=== PATIENT | male | born 1990 | race Caucasian/White ===

== ENCOUNTER 2020-01-26 06:49 | Day surgery (SDC) | payer BC, OTHER ==
[2020-01-19 12:07] LABS: BASOPHILS # (AUTO) 0.1 X10'3 (0-0.2); BASOPHILS % (AUTO) 0.7 % (0-1); EOSINOPHILS # (AUTO) 0.4 X10'3 (0-0.9); LYMPHOCYTES # (AUTO) 3.8 X10'3 (1.1-4.8); MEAN CORPUSCULAR HEMOGLOBIN 28.4 PG (27.0-31.0); MEAN CORPUSCULAR HGB CONC 32.9 g/dL (33.0-36.5); MEAN CORPUSCULAR VOLUME 86.4 FL (78-98); MEAN PLATELET VOLUME 6.9 FL (7.4-10.4); MONOCYTES # (AUTO) 0.8 X10'3 (0-0.9); MONOCYTES % (AUTO) 8.9 % (2-12); NEUTROPHILS # (AUTO) 4.1 X10'3 (1.8-7.7); NEUTROPHILS % (AUTO) 44.4 % (42-75); PRE OP HEMOGLOBIN 14.1 g/dL (14.0-17.9); PRE OP PLATELET COUNT 321 X10'3 (140-440); RED BLOOD COUNT 4.97 X10'6 (4.70-6.10); RED CELL DISTRIBUTION WIDTH 13.9 % (11.5-14.5)
[2020-01-19 12:31] LABS: ALBUMIN/GLOBULIN RATIO 1.1 (1.1-1.5); ALKALINE PHOSPHATASE 64 IU/L (46-116); BLOOD UREA NITROGEN 10 MG/DL (7-18); BUN/CREATININE RATIO 8.6 (5.4-32.0); CALCIUM 8.9 MG/DL (8.5-10.1); CHLORIDE 103 MMOL/L (99-107); CREATININE 1.16 MG/DL (0.60-1.10); PRE OP ALT 27 U/L (30-65); PRE OP ANION GAP 8 (8-16); PRE OP AST 15 U/L (10-37); PRE OP BILIRUB, TOTAL 0.3 MG/DL (0.0-1.0); PRE OP GLUCOSE 100 MG/DL (70-104); PRE OP POTASSIUM 3.7 MMOL/L (3.4-5.1); PRE OP SODIUM 138 MMOL/L (135-145); TOTAL CARBON DIOXIDE 27.4 MMOL/L (24-32); TOTAL PROTEIN 7.8 G/DL (6.4-8.2); eGFR 73 ML/MIN
[~2020-01-26] VITALS: Ht 172.7 cm; Wt 120.4 kg
[2020-01-26] VITALS (10 sets, daily range): BP systolic 101–135; BP diastolic 37–77
[~2020-01-26 06:49] MED LIST: BUPIVAcaine/PF 2.5mg/ml (0.25%) 10ml vial ONE; IBUP-1986 PO; cefazolin/dext.iso 2gm/50ml 50 ML IV ONE; famotidine 20mg tablet PO ONE; ringers solution, lacted 1,000 ML IV SCH
[2020-01-26] MEDS ORDERED: LIDOcaine 0.5% (5mg/ml) 50ml vial ONE (09:00)
[2020-01-26] MEDS ORDERED: ringers solution, lacted 1,000 ML IV SCH (10:07)
[2020-01-26] MEDS ORDERED: meperidine/PF 25mg/ml syringe IV PRN ×3 (10:10)
[2020-01-26] MEDS ORDERED: morphine 4 MG/ML inj SYRINge IV PRN (10:10)
[2020-01-26] MEDS ORDERED: labetalol 20mg/4ml (5mg/ml) syringe IV PRN (10:10)
[2020-01-26] MEDS ORDERED: acetaminophen 1,000mg/100ml IV 100 ML IV PRN (10:10)
[2020-01-26] MEDS ORDERED: hydrALAZINE 20mg/ml inj. IV PRN (10:10)
[2020-01-26] MEDS ORDERED: morphine 2 MG/ML inj. syringe IV PRN (10:10)
[2020-01-26] MEDS ORDERED: proCHLORperazine 10 MG/2 ml inj IV PRN (10:10)
[2020-01-26] MEDS ORDERED: ondansetron/PF 4mg/2ml inj IV PRN (10:10)
[2020-01-26] MEDS ORDERED: fentaNYL/PF 50MCG/1 ML 2ML syringe ONE (11:52)
[2020-01-26] MEDS ORDERED: MIDAZolam 5mg/5ml vial ONE (12:02)
[2020-01-26] MEDS ORDERED: propofol inj 20 ML IV ONE ×2 (12:09)
--- NOTE | 2020-01-26 12:43 | NUR ---
Received from OR via [facility], accompanied by Anesthesiologist DR RIVERA and report given by Anesthesiologist. PT DROWSY, DENIES PAIN, RIGHT HAND/WRIST W/BIAS DRSG COVERING INCISION/DRSG CDI, FINGERS PWD, PEDIATRIC PSYCHOLOGIST 1-2 SECONDS. Addendum: 01/26/20 at 1307 by Sasha Wilson RN Amended: Links added.
--- NOTE | 2020-01-26 14:13 | NUR ---
D/C INSTRUCTIONS GIVEN AND GONE OVER W/PT WHO VERBALIZED UNDERSTANDING, PT D/CD TO HOME VIA W/C TO PRIVATE VEHICLE W/O INCIDENT. Addendum: 01/26/20 at 1418 by Sasha Wilson RN Amended: Links added.
== END 2020-01-26 14:13 | disposition home or self-care (01) ==
LOC: PAS 06:49
PROVIDERS: ATTEND Orthopaedic Surgery Hand Surgery
DX: S63.591A Other specified sprain of right wrist, initial encounter (principal); E66.9 Obesity, unspecified; Z68.41 Body mass index [BMI] 40.0-44.9, adult; Z72.89 Other problems related to lifestyle; Z88.5 Allergy status to narcotic agent; Z79.899 Other long term (current) drug therapy; Z87.891 Personal history of nicotine dependence; Z20.828 Contact with and (suspected) exposure to other viral communicable diseases; X58.XXXA Exposure to other specified factors, initial encounter; Y93.89 Activity, other specified; Y92.89 Other specified places as the place of occurrence of the external cause; Y99.8 Other external cause status
CPT/HCPCS: 29846; 36415; 80053; 82948; 85025; 87635; J2001; J2250; J2704; J3010; J3490; J7120; A4215; A4618; A6449; A7000